=== PATIENT | male | born 1990 | race Caucasian/White ===

== ENCOUNTER → 2017-12-24 | Outpatient (CLI) | payer OTHER ==
[~2017-12-24] MED LIST: OSTERA TABLET1 EACH; VITAMIN C500 MG/15
== END | disposition home or self-care (01) ==
LOC: PPHC 12:54
DX: K52.89 Other specified noninfective gastroenteritis and colitis (principal)

== ENCOUNTER 2018-10-11 12:37 | Emergency (ER) | payer OTHER ==
[~2018-10-11] VITALS: Ht 180.3 cm; Wt 72.6 kg
== END 2018-10-11 16:15 | disposition home or self-care (01) ==
LOC: ER 12:37
DX: J11.1 Influenza due to unidentified influenza virus with other respiratory manifestations (principal); J06.9 Acute upper respiratory infection, unspecified

== ENCOUNTER 2021-01-03 01:56 | Emergency (ER) | payer OTHER ==
[~2021-01-03] VITALS: Ht 180.3 cm; Wt 74.8 kg
== END 2021-01-03 03:32 | disposition home or self-care (01) ==
LOC: ER 01:56
DX: M25.531 Pain in right wrist (principal)

== ENCOUNTER 2022-08-23 16:14 | Emergency (ER) | payer OTHER ==
[~2022-08-23] VITALS: Ht 180.3 cm; Wt 77.1 kg
== END 2022-08-23 18:46 | disposition home or self-care (01) ==
LOC: ER 16:14
DX: M54.9 Dorsalgia, unspecified (principal)

== ENCOUNTER 2023-08-20 18:22 | Emergency (ER) | payer OTHER ==
[~2023-08-20] VITALS: Ht 172.7 cm; Wt 83.9 kg
== END 2023-08-20 22:14 | disposition home or self-care (01) ==
LOC: ER 18:22
DX: J06.9 Acute upper respiratory infection, unspecified (principal)

== ENCOUNTER 2023-12-24 21:54 | Emergency (ER) | payer OTHER ==
[~2023-12-24] VITALS: Ht 180.3 cm; Wt 73.9 kg
[2023-12-25] MEDS ORDERED: KETOROLAC TROMETHAMINE 10 MG TABLET PO STA (00:41)
[2023-12-25] MEDS ORDERED: GUAIFENESIN/DEXTROMETHORPHAN 100 MG/5 ML ML PO STA (00:41)
[2023-12-25 01:21] LABS: HEMATOCRIT 42.7 % (39.0-48.0); HEMOGLOBIN 14.8 g/dL (13-16.00); MEAN CELL VOLUME 89.9 fL (80.0-100.00); MEAN CORPUSCULAR HEMOGLOBIN 31.3 pg (27.00-32.0); MEAN CORPUSCULAR HGB CONC 34.8 g/dl (32.0-36.0); PLATELET COUNT 257 K/uL (150-450); RED BLOOD COUNT 4.75 M/uL (4.00-6.00); RED CELL DISTRIBUTION WIDTH 13.8 % (11.5-14.5)
[2023-12-25] MEDS ORDERED: PHENAGIL TABLE1 EACH PO (03:07)
[2023-12-25] MEDS ORDERED: ZYNCOF 20-400120 ML PO (03:07)
[2023-12-25] MEDS ORDERED: DOLOGESIC 500-1 EACH PO (03:07)
[2023-12-25] MEDS ORDERED: OSEL75CA PO (03:07)
[2023-12-25] MEDS ORDERED: ZOVIRAX30 GM TOP (03:25)
== END 2023-12-25 03:33 ==
LOC: ER 21:54
PROVIDERS: General Practice
DX: J10.1 Influenza due to other identified influenza virus with other respiratory manifestations (principal)

== ENCOUNTER 2024-07-16 12:44 | Emergency (ER) | payer OTHER ==
[~2024-07-16] VITALS: Ht 154.9 cm; Wt 77.1 kg
[~2024-07-16 12:44] MED LIST changes: +DOLOGESIC 500-1 EACH PO; +OSEL75CA PO; +PHENAGIL TABLE1 EACH PO; +ZOVIRAX30 GM TOP; +ZYNCOF 20-400120 ML PO
[2024-07-16 13:54] LABS: HEMATOCRIT 40.7 % (39.0-48.0); MEAN CELL VOLUME 89.4 fL (80.0-100.00); MEAN CORPUSCULAR HEMOGLOBIN 30.7 pg (27.00-32.0); MEAN CORPUSCULAR HGB CONC 34.3 g/dl (32.0-36.0); PLATELET COUNT 304 K/uL (150-450); RED BLOOD COUNT 4.55 M/uL (4.00-6.00); RED CELL DISTRIBUTION WIDTH 13.7 % (11.5-14.5)
[2024-07-16 14:16] LABS: ALBUMIN 3.9 gm/dL (3.4-5.0); BILIRUBIN TOTAL 0.19 mg/dL (0.3-1.2); CALCIUM 9.1 mg/dL (8.5-10.1); CREATININE SERUM 0.94 mg/dL (0.70-1.30); GFR 93.6; GLOBULINA 3.2 G/DL (2.4-3.5); POTASSIUM 4.53 mEq/L (3.5-5.1); TOTAL PROTEIN 7.1 gm/dL (6.4-8.2)
== END 2024-07-16 14:37 | disposition home or self-care (01) ==
LOC: ER 12:46
PROVIDERS: General Practice
DX: R22.32 Localized swelling, mass and lump, left upper limb (principal)